=== PATIENT | female | born 1975 | race Caucasian/White ===

== ENCOUNTER → 2017-01-27 | Outpatient (CLI) | payer BC ==
[~2017-01-27] MED LIST: ACYC800T PO; BNT20 PO; CALC500C3 PO; CALC500C50; FLUT50SP14 NAE; HYDR1TAB2 PO; OMEP40CA41 PO; ONDA8TAB12 PO; PANT40TA PO; POLY335019 PO; POLY335040 PO; RANI300T2 PO; RIZA10TA18 PO; RIZA10TA19 PO; TOPI50TA16 PO; TRAM-453 PO
[2017-01-31 22:31] LABS: IGA SERUM 231 mg/dL (81-463); TIS TRANS IGA 1 U/mL (<4)
== END | disposition home or self-care (01) ==
LOC: C.LAB1850 16:00
PROVIDERS: ATTEND Registered Nurse
DX: R19.8 Other specified symptoms and signs involving the digestive system and abdomen (principal)

== ENCOUNTER → 2017-02-09 | Day surgery (SDC) | payer BC ==
[2017-01-31 15:45] VITALS: Ht 160 cm; Wt 63.6 kg
[~2017-02-09] VITALS: Ht 160 cm; Wt 63.6 kg
[~2017-02-09] MED LIST changes: -BNT20 PO; -CALC500C50; -FLUT50SP14 NAE; +LIDOCAINE HCL 2% 2 ML VIAL (20MG/ML) ONE; +MIDAZOLAM HCL 1 MG/ML 2ML VIAL ONE; -OMEP40CA41 PO; -ONDA8TAB12 PO; -POLY335040 PO; +PROPOFOL IV EMULSION 10 MG/ML 20 ML VIAL IV ONE; -RIZA10TA18 PO; -TOPI50TA16 PO; -TRAM-453 PO
--- NOTE | 2017-02-09 11:01 | Endo History and Physical ---
History & Physical Date of Service: Feb 09, 2017. Chief Complaint: Alternating Constipation/Diarrhea Referring Physician: Young History of Present Illness 41 yo CF who presents for colonoscopy secondary to change in bowel habits. Past Surgical History Hx Cardiac Surgery: No Hx Internal Defibrillator: No Hx Pacemaker: No Hx Abdominal Surgery: Yes (FALLOPIAN TUBE PROCEDURE?, UTERINE ABLATION, ROSALIND AND RT OOPHERECTOMY) Hx of Implantable Prosthesis: No Hx Post-Op Nausea and Vomiting: Yes Hx Cancer Surgery: No Hx Thoracic Surgery: No Hx Orthopedic: No Hx Urinary Tract Surgery: No Family History IBD Social History Smoking Status: Never Smoker Hx Substance Use: Yes (SEE MED REC) Hx Alcohol Use: Yes (RARELY) Allergies Coded Allergies: Sulfa Drugs (Verified Allergy, Severe, EXTREME HIVES, 02/09/17) Cephalosporins (Verified Allergy, Intermediate, RASH, 02/09/17) Azithromycin (Verified Allergy, Unknown, UNKNOWN, 02/09/17) Current Medications Reported Home Medications Medications Dose Route/Sig Max Daily Dose Days Date Category Maxalt-Geodesist (Rizatriptan Benzoate) 10 Mg Tab 10 Mg PO DIRECTED PRN 01/31/17 Reported Tums (Calcium Carbonate) 500 Mg Chew 1 Tab PO DIRECTED PRN 01/31/17 Reported Zovirax (Acyclovir) 800 Mg Tab 800 Mg PO DIRECTED PRN 10 01/31/17 Reported Zantac (Ranitidine HCl) 300 Mg Tab 300 Mg PO HS 01/31/17 Reported Protonix (Pantoprazole Sodium) 40 Mg Tab 40 Mg PO QAM 01/31/17 Reported Miralax (Polyethylene Glycol 3350) 1 Pow Pow 17 Gm PO QAM 01/31/17 Reported Lortab 5MG/500MG (Hydrocodone/Acetaminophen 5MG/500MG) 1 Tab Tab 1 Tablet PO Q6HR PRN 07/17/12 Reported Vital Signs Weight (Kilograms): 63.64 Height (Feet): 5 Height (Inches): 3 Date Time Temp Pulse Resp B/P (MAP) Pulse Ox O2 Delivery O2 Flow Rate FiO2 02/09/17 10:30 37.1 64 18 99/66 (77) 98 Room Air Physical Exam General Appearance: WD/WN, no apparent distress Respiratory/Chest: Auscultation: breath sounds normal Cardiovascular: Heart Auscultation: RRR Abdomen: Bowel Sounds: normal Inspection & Palpation: soft, non-distended, no tenderness, guarding & rebound Assessment and Plan Assessment: 41 yo CF who presents for colonoscopy secondary to change in bowel habits. Plan: Proceed with colonoscopy.
--- NOTE | 2017-02-09 11:24 | GI REPORT ---
Procedure Date: 02/09/2017 10:58 AM Procedure: Colonoscopy Indications: Change in bowel habits Medicines: Monitored Anesthesia Care Complications: No immediate complications. Estimated Blood Loss: Estimated blood loss: none. Procedure: Pre-Anesthesia Assessment: - Prior to the procedure, a History and Physical was performed, and patient medications and allergies were reviewed. The patient's tolerance of previous anesthesia was also reviewed. The risks and benefits of the procedure and the sedation options and risks were discussed with the patient. All questions were answered, and informed consent was obtained. Prior Anticoagulants: The patient has taken no previous anticoagulant or antiplatelet agents. ASA Grade Assessment: II - A patient with mild systemic disease. After reviewing the risks and benefits, the patient was deemed in satisfactory condition to undergo the procedure. After I obtained informed consent, the scope was passed under direct vision. Throughout the procedure, the patient's blood pressure, pulse, and oxygen saturations were monitored continuously. The scope was introduced through the anus and advanced to the terminal ileum. The colonoscopy was performed without difficulty. The patient tolerated the procedure well. The quality of the bowel preparation was good. The terminal ileum, ileocecal valve, appendiceal orifice, and rectum were photographed. Findings: The colon (entire examined portion) appeared normal. Impression: - The entire examined colon is normal. - No specimens collected. Recommendation: - Resume previous diet. - Continue present medications. - Repeat colonoscopy in 10 years for surveillance. - Return to primary care physician as previously scheduled. Brandon Felix DO 02/09/2017 11:23:49 AM This report has been signed electronically. Note Initiated On: 02/09/2017 10:58 AM I attest to the content of the Intraoperative Record and orders documented therein, exceptions below
--- NOTE | 2017-02-09 11:26 | Discharge Instructions ---
Endoscopy Patient Instructions Date / Procedure(s) Performed Feb 09, 2017. Colonoscopy Allergy Information Coded Allergies: Sulfa Drugs (Verified Allergy, Severe, EXTREME HIVES, 02/09/17) Cephalosporins (Verified Allergy, Intermediate, RASH, 02/09/17) Azithromycin (Verified Allergy, Unknown, UNKNOWN, 02/09/17) Discharge Date / Findings Feb 09, 2017. Normal colonoscopy Medication Instructions OK to resume all medications today as prescribed Reported Home Medications Medications Dose Route/Sig Max Daily Dose Days Date Category Maxalt-[employer] Officer (Rizatriptan Benzoate) 10 Mg Tab 10 Mg PO DIRECTED PRN 01/31/17 Reported Tums (Calcium Carbonate) 500 Mg Chew 1 Tab PO DIRECTED PRN 01/31/17 Reported Zovirax (Acyclovir) 800 Mg Tab 800 Mg PO DIRECTED PRN 10 01/31/17 Reported Zantac (Ranitidine HCl) 300 Mg Tab 300 Mg PO HS 01/31/17 Reported Protonix (Pantoprazole Sodium) 40 Mg Tab 40 Mg PO QAM 01/31/17 Reported Miralax (Polyethylene Glycol 3350) 1 Pow Pow 17 Gm PO QAM 01/31/17 Reported Lortab 5MG/500MG (Hydrocodone/Acetaminophen 5MG/500MG) 1 Tab Tab 1 Tablet PO Q6HR PRN 07/17/12 Reported Provider Instructions Activity Restrictions - No exercising or heavy lifting for 24 hours. - Do not drink alcohol the day of the procedure. - Do not drive a car or operate machinery until the day after the procedure. - Do not make any important decisions or sign important papers in 24 hours after the procedure. Following Day: - Return to full activity which may include returning to work/school. Diet Start your diet with liquids and light foods (jello, soup, juice, toast). Then eat your usual diet if not nauseated. Treatment For Common After Affects For mild abdominal pain, bloating, or excessive gas: - Rest - Eat lightly - Lie on right side Follow-Up Information Follow-up with [facility] as scheduled Anesthesia Information What You Should Know You have had a procedure that required some medicine to reduce anxiety and discomfort. This treatment is called moderate sedation. After receiving the treatment, you may be sleepy, but you will be able to breathe on your own. The effects of the treatment may last for several hours. Follow these instructions along with Activity/Diet recommendations noted above: * Do NOT do anything where dizziness or clumsiness would be dangerous. * Rest quietly at home today, then you can be up and about tomorrow. * Have a responsible person stay with you the rest of today. * You may have had an I.V. today. If so, you may take the dressing off later today. Recommendations Call your doctor if: * Trouble breathing * Continuous vomiting for more than 24 hours * Temperature above 101 degrees * Severe abdominal pain or bloating * Pain not relieved by pain medicine ordered * There is increased drainage or redness from any incision * A large amount of rectal bleeding greater than 2-3 tablespoons. (If you had a polyp/s removed or have hemorrhoids, a small amount of blood - from the rectum is to be expected.) * You have any unanswered questions or concerns. IN THE EVENT OF A SERIOUS EMERGENCY, GO TO THE NEAREST EMERGENCY ROOM Your discharge instructions were prepared by provider Brandon Felix. Patient Instructions Signature Page Angela Tan Patient (or Guardian) Signature/Date: I have read and understand the instructions given to me by my caregivers. Caregiver/RN/Doctor Signature/Date: The above-named patient and/or guardian has received patient instructions on this date. + Original Patient Signature Page (only) stays with chart. Please make copy for patient.
[2017-02-09 11:53] VITALS: BP 103/73; PULSE 66; O2SAT 100
--- NOTE | 2017-02-09 12:03 | Anesthesiology Progress Note ---
Anesthesia Post Op Note Date & Time Feb 09, 2017 at 12:02 Vital Signs Pain Intensity: 0 Vital Signs Past 12 Hours Date Time Temp Pulse Resp B/P (MAP) Pulse Ox O2 Delivery O2 Flow Rate FiO2 02/09/17 11:53 66 18 103/73 (83) 100 Room Air 02/09/17 11:37 70 18 99/64 (76) 100 Room Air 02/09/17 11:22 71 18 95/58 (70) 99 Room Air 02/09/17 10:30 37.1 64 18 99/66 (77) 98 Room Air Notes Mental Status: alert / awake / arousable, participated in evaluation Pt Amnestic to Procedure: Yes Nausea / Vomiting: adequately controlled Pain: adequately controlled Airway Patency, RR, SpO2: stable & adequate BP & HR: stable & adequate Hydration State: stable & adequate Anesthetic Complications: no major complications apparent
== END | disposition home or self-care (01) ==
LOC: C.GI 10:02
PROVIDERS: ATTEND Internal Medicine
DX: K59.00 Constipation, unspecified (principal); Z90.710 Acquired absence of both cervix and uterus; K21.9 Gastro-esophageal reflux disease without esophagitis; K58.9 Irritable bowel syndrome, unspecified

== ENCOUNTER → 2017-10-17 | Outpatient (CLI) | payer BC ==
[~2017-10-17] MED LIST changes: -LIDOCAINE HCL 2% 2 ML VIAL (20MG/ML) ONE; -MIDAZOLAM HCL 1 MG/ML 2ML VIAL ONE; -PROPOFOL IV EMULSION 10 MG/ML 20 ML VIAL IV ONE
--- NOTE | 2017-10-18 07:46 | MAMMOGRAPHY REPORT ---
BILATERAL DIGITAL SCREENING MAMMOGRAM TOMOSYNTHESIS WITH CAD: 10/17/2017 CLINICAL HISTORY: Routine screening. Patient has no complaints. TECHNIQUE: Breast tomosynthesis in addition to standard 2D mammography was performed. Current study was also evaluated with a Computer Aided Detection (CAD) system. COMPARISON: Comparison is made to exams dated: 04/29/2015 mammogram, 04/25/2014 mammogram, 10/22/2013 m ammogram, 04/26/2013 ultrasound biopsy, 04/20/2013 mammogram, and 10/18/2012 mammogram - [facility]. BREAST COMPOSITION: The tissue of both breasts is extremely dense, which lowers the sensitivity of m ammography. FINDINGS: There is a stable ribbon-shaped biopsy marker clip in the subareolar right breast. Stable diffuse bilateral benign-appearing punctate microcalcifications. No new suspicious mass, architectura l distortion or cluster of microcalcifications is seen. IMPRESSION: ACR BI-RADS CATEGORY 1: NEGATIVE There is no mammographic evidence of malignancy. A 1 year screening mammogram is recommended. The pa tient will receive written notification of the results. Approximately 10% of breast cancers are not detected with mammography. A negative mammographic report should not delay biopsy if a clinically suggestive mass is present. Sravanthi Pastor M.D. ay/:10/17/2017 15:41:51 Die Out Worker: Rocio CAUSEY(Breonna)(M), [facility] letter sent: Normal 1/2 BI-RADS Code: ACR BI-RADS Category 1: Negative
== END | disposition home or self-care (01) ==
LOC: C.MAMM 07:05
PROVIDERS: ATTEND Obstetrics & Gynecology
DX: Z12.31 Encounter for screening mammogram for malignant neoplasm of breast (principal)